=== PATIENT | male | born 1965 | race Hispanic/Latino ===

== ENCOUNTER 2017-10-27 07:05 | Inpatient (IN) | payer SELFPAY ==
[2017-10-27 07:22] LABS: #Basophils 0.1 thou/uL (0.0-0.2); #Eosinphils 0.1 thou/uL (0.0-0.7); #Lymphocytes 3.2 thou/uL (1.20-3.40); #Monocytes 0.7 thou/uL (0.11-0.59); #Neutrophils 5.9 thou/uL (1.40-6.50); %Basophils 0.6 % (0.0-1.0); %Eosinophils 1.5 % (0.0-10.0); %Lymphocytes 31.8 % (21.0-51.0); %Monocytes 6.8 % (0.0-10.0); %Neutrophils 59.3 % (42.0-75.0); Hemoglobin 16.2 g/dL (14.0-18.0); Mean Corpuscular HGB CONC 33.8 g/dL (32.0-36.0); Mean Corpuscular Hemoglobin 32.4 pg (27.0-31.0); Mean Corpuscular Volume 95.9 fL (78.0-98.0); Mean Platelet Volume 7.9 fL (7.4-10.4); Platelet Count 253 thou/uL (130-400); RBC Distribution Width 12.3 % (11.5-14.5); Red Blood Cell (RBC) Count 4.99 mill/uL (4.70-6.10); White Blood Cell (WBC) Count 9.9 thou/uL (4.8-10.8)
[2017-10-27 07:32] LABS: PTT 27.4 SEC (22.9-36.1); Prothrombin Time 12.7 SEC (12.0-14.7)
[2017-10-27 07:45] LABS: ALT (SGPT) 56 U/L (8-55); AST (SGOT) 29 U/L (5-34); Acetaminophen Less than 6.0 mcg/mL (10.0-30.0); Albumin 4.4 g/dL (3.5-5.0); Alcohol Less than 10 mg/dL (Less than 10); Alkaline Phosphatase 126 U/L (40-150); Anion Gap 16 mmol/L (10-20); BUN (Urea Nitrogen) 18 mg/dL (8.4-25.7); Bilirubin, Total 0.4 mg/dL (0.2-1.2); Calc. Creatinine Clearance 0 mL/min (70-130); Calcium 9.3 mg/dL (7.8-10.44); Carbon Dioxide 19 mmol/L (22-29); Chloride 106 mmol/L (98-107); Estimated GFR-MDRD 83; Globulin 3.6 g/dL (2.4-3.5); Glucose 200 mg/dL (70-105); Potassium 4.2 mmol/L (3.5-5.1); Salicylate Less than 8.0 mg/dL (15.0-30.0); Sodium 137 mmol/L (136-145)
[2017-10-27 07:49] LABS: CKMB 0.9 ng/mL (0-6.6); Troponin I Less than 0.010 ng/mL (< 0.028)
[2017-10-27] MEDS ORDERED: Heparin 10,000 UNITS/1 ML VIAL ONE (08:00)
[2017-10-27] MEDS ORDERED: Fentanyl 100 MCG/2 ML VIAL ONE (08:00)
[2017-10-27] MEDS ORDERED: Midazolam HCl 2 mg/2 ml Vial ONE (08:00)
[2017-10-27] MEDS ORDERED: Lidocaine 1% (PF) 30 ML VIAL ONE (08:00)
[2017-10-27] MEDS ORDERED: Nitroglycerin 100MG/250ML BOT 0 ML ONE (08:02)
--- NOTE | 2017-10-27 08:08 | RAD ---
PORTABLE AP CHEST: Date: 10/27/17 HISTORY: Chest pain, STEMI. COMPARISON: 11/05/14. FINDINGS: Postsurgical changes related to CABG are again noted. Prominence of the upper mediastinum. This is st able when compared to multiple prior studies and shown to be related to a combination of mediastinal fat and vascular structures on CTA of the chest in 2012. The cardiac silhouette is enlarged. There is linear atelectasis versus scarring at the left lung base. There is blunting of the right lateral cos tophrenic angle, which is a stable finding, and was also seen on study of 08/04/14 and may be related to pleural and parenchymal scarring at the right lung base. Lungs are otherwise clear. No other inte rval change. IMPRESSION: 1. Cardiomegaly. 2. Linear scarring left lung base with pleural and parenchymal scarring right lung base. 3. No acute cardiopulmonary process. POS: [facility]
[2017-10-27] MEDS ORDERED: Aggrastat 12.5 MG/250 ML 250 ML ONE (09:19)
[2017-10-27] MEDS ORDERED: hydrALAZINE 20 MG/ML VIAL ONE (09:19)
[2017-10-27] MEDS ORDERED: Acetaminophen/Codeine 30-300mg Tablet PO PRN (09:36)
[2017-10-27] MEDS ORDERED: traMADol HCl 50 MG TAB PO PRN (09:36)
[2017-10-27] MEDS ORDERED: Zolpidem Tartrate 5 MG TAB PO PRN (09:36)
[2017-10-27] MEDS ORDERED: cloNIDine 0.1 MG TAB PO PRN (09:36)
[2017-10-27] MEDS ORDERED: Milk Of Magnesia 30 ML UDCUP PO PRN (09:36)
[2017-10-27] MEDS ORDERED: Mag-Al 1200 mg/1200 mg/30 ML UDCUP PO PRN (09:36)
[2017-10-27] MEDS ORDERED: Nitroglycerin 0.4 MG TAB (25 Tab Bottle) SL PRN (09:36)
[2017-10-27] MEDS ORDERED: Nitroglycerin 50 MG/250 ML BOT 250 ML ONE (09:38)
[2017-10-27] MEDS ORDERED: Nitroglycerin 50 MG/250 ML BOT 250 ML IVPB SCH (09:45)
[2017-10-27] MEDS ORDERED: Aggrastat 12.5 MG/250 ML 250 ML IVPB SCH (09:45)
[2017-10-27] MEDS ORDERED: Sodium Chloride 0.9% 1,000 ML IV SCH (09:45)
[2017-10-27 10:51] LABS: #Eosinphils 0.1 thou/uL (0.0-0.7); #Lymphocytes 2.2 thou/uL (1.20-3.40); #Monocytes 0.5 thou/uL (0.11-0.59); #Neutrophils 7.3 thou/uL (1.40-6.50); %Basophils 0.4 % (0.0-1.0); %Eosinophils 1.3 % (0.0-10.0); %Lymphocytes 21.9 % (21.0-51.0); %Monocytes 5.2 % (0.0-10.0); %Neutrophils 71.2 % (42.0-75.0); Hemoglobin 14.6 g/dL (14.0-18.0); Mean Corpuscular HGB CONC 33.6 g/dL (32.0-36.0); Mean Platelet Volume 8.5 fL (7.4-10.4); Platelet Count 259 thou/uL (130-400); RBC Distribution Width 12.4 % (11.5-14.5); Red Blood Cell (RBC) Count 4.57 mill/uL (4.70-6.10); White Blood Cell (WBC) Count 10.2 thou/uL (4.8-10.8)
--- NOTE | 2017-10-27 11:05 | HP ---
DATE OF SERVICE: 10/27/2017 REASON FOR ADMISSION: Chest pain. PRIMARY MANAGER DAIRY: Reynold Gorman M.D. HISTORY OF PRESENT ILLNESS: Mr. Duarte is a pleasant 51-year-old gentleman who comes to the hospital for evaluation of chest pain. He states he has been having this chest pain for the last 3 months, it comes and goes. He describes it as a heartburn type sensation. He has spoken with his pr imary care about this several times and they just give him antireflux medications with not much impro vement. His pain got much worse overnight, so he called 911 earlier this morning when the pain was n ot going away. He had an EKG on route that was thought to be ST elevations; however, this was not th e case. Either way, he was brought to the catheterization lab for further evaluation as he was havin g ongoing chest pain. In the mobile lab technician, he has a history of CABG, so he was found to have an subtotal left main completely occluded LAD and an occluded RCA. He had a CABG x5. Apparently has a fr ee ASH to the LAD which is patent. There is a vein graft to an OM, and a vein graft to an IR, which is a bifurcating vein graft that has about a 90% obstruction just proximal to the bifurcation, very complex lesion and he has got a patent vein to the right. We decided to try to open up that bifurcat ing lesion. It was extremely difficult to wire, but once the 2 wires were through, we were able to b alloon the balloon in a kissing fashion both areas, getting good angioplasty results and we were unab le to get stents mostly to the vein graft to a large OM which was the largest distribution. The sten t would easily go into the IR, but not into the OM, so we decided to leave this just with balloon ang ioplasty as a high likelihood of closing up the OM bypass if we were to stent across. He is chest pa in free and he felt much better after balloon angioplasty and actually was very symptomatic every sim e we opened up the balloons, he felt the chest pain is that he has been feeling for the last few ivet hs. Currently, pain free. PAST MEDICAL HISTORY: 1. Coronary artery disease as above. 2. Hyperlipidemia. 3. Hypertension. 4. Stroke in the past. 5. Type 2 diabetes. PAST SURGICAL HISTORY: 1. CABG x5 in the 90s, 27 years ago. 2. Arthroscopic knee surgery. 3. Appendectomy. 4. Right ear tube placement, many years ago. ALLERGIES: No known drug allergies. OUTPATIENT MEDICATIONS: Include; 1. Lisinopril. 2. Imdur. 3. Plavix. 4. Carvedilol. 5. Atorvastatin. 6. Aspirin. FAMILY HISTORY: Noncontributory. SOCIAL HISTORY: No tobacco, no drugs. He was a drinker in the past about 2 beers a day. REVIEW OF SYSTEMS: Twelve point review of system was done. It is all negative unless stated in the history of present illness. PHYSICAL EXAMINATION: VITAL SIGNS: Temperature 97.2, pulse 80, blood pressure 180/98, satting 98% on 2 liters nasal cannul a. GENERAL: Awake, alert, oriented x3, in no distress. HEENT: Normocephalic, atraumatic. NECK: Supple. LUNGS: Clear. CARDIOVASCULAR: S1, S2, no S3, S4, no murmurs. ABDOMEN: Soft, positive bowel sounds. EXTREMITIES: No edema. SKIN: Warm and dry. LABORATORY WORK: Reviewed. Normal BUN and creatinine. CBC is unremarkable. Troponin is undetectab le x1. EKG was reviewed, normal sinus rhythm with PVCs, but no ST elevations. ASSESSMENT: 1. Unstable angina. 2. Status post balloon angioplasty to a bifurcating vein graft. 3. Hypertension. 4. Coronary artery disease. 5. History of cerebrovascular accident. 6. Hyperlipidemia. PLAN: 1. We will put him in the unit secondary to complex PCI with Aggrastat to make sure he does not clot off anything. We will show his films to surgery to make sure he may need a bypass if his balloon an gioplasty does not stent. I will give him oral antiplatelets once Surgery has reviewed the films. O therwise, continue Aggrastat prior for the next 12 hours. We will pull the sheath an hour after the Aggrastat has been turned off. 2. We will start on nitro drip to try to control his blood pressure a little bit better. 3. We will resume his home medications. 4. FULL CODE. 5. Disposition: Pending clinical evolution.
[2017-10-27 11:15] LABS: CKMB 5.2 ng/mL (0-6.6)
[2017-10-27 11:20] LABS: Troponin I 0.384 ng/mL (< 0.028)
[2017-10-27] MEDS ORDERED: Metoprolol Tartrate 25 MG TAB PO SCH (11:45)
[2017-10-27] MEDS ORDERED: Lisinopril 2.5 MG TAB PO SCH (11:45)
[2017-10-27 12:16] VITALS: BMI 43.9
[2017-10-27] MEDS ORDERED: Iopamidol 370 76% 50 ML VIAL FS ONE (13:48)
[2017-10-27] MEDS ORDERED: Iopamidol 370 76% 100 ML VIAL ONE (13:48)
[2017-10-27] MEDS ORDERED: Folic Acid 1 MG TAB PO SCH (14:00)
[2017-10-27] MEDS ORDERED: Furosemide 40 MG/4 ML VIAL SLOW IVP SCH (14:00)
--- NOTE | 2017-10-27 14:08 | RAD ---
SINGLE VIEW OF THE CHEST: COMPARISON: 11/05/14. HISTORY: Status post interventional cardiology procedure. FINDINGS: A single view of the chest shows an enlarged cardiomediastinal silhouette. The patient is status pos t sternotomy. There is no evidence of consolidation, mass, or pleural effusion. IMPRESSION: Cardiomegaly without evidence of acute cardiopulmonary disease. POS: [facility]
[2017-10-27] MEDS ORDERED: Clopidogrel Bisulfate 300 MG TAB PO SCH (15:15)
[2017-10-27 15:56] LABS: #Eosinphils 0.1 thou/uL (0.0-0.7); #Lymphocytes 2.1 thou/uL (1.20-3.40); #Monocytes 0.6 thou/uL (0.11-0.59); #Neutrophils 7.5 thou/uL (1.40-6.50); %Basophils 0.4 % (0.0-1.0); %Eosinophils 0.8 % (0.0-10.0); %Lymphocytes 19.9 % (21.0-51.0); %Monocytes 6.2 % (0.0-10.0); %Neutrophils 72.7 % (42.0-75.0); Hemoglobin 15.3 g/dL (14.0-18.0); Mean Corpuscular Hemoglobin 32.5 pg (27.0-31.0); Mean Corpuscular Volume 95.4 fL (78.0-98.0); Mean Platelet Volume 7.9 fL (7.4-10.4); Platelet Count 281 thou/uL (130-400); RBC Distribution Width 12.4 % (11.5-14.5); White Blood Cell (WBC) Count 10.3 thou/uL (4.8-10.8)
[2017-10-27 16:27] LABS: CKMB 8.9 ng/mL (0-6.6); Troponin I 1.572 ng/mL (< 0.028)
[2017-10-27] MEDS: Carvedilol 25 MG TAB PO SCH (17:05)
[2017-10-27] MEDS: BEER 1 CAN PO SCH (17:10)
--- NOTE | 2017-10-27 18:15 | CON ---
DATE OF CONSULTATION: 10/27/2017 SERVICE: Pulmonary Medicine. REASON FOR CONSULTATION: ICU patient. HISTORY OF PRESENT ILLNESS: The patient is a 51-year-old male with past medical history significant for coronary artery disease, 5-vessel coronary artery bypass graft remotely. Either way, he ended up with some chest discomfort that started 2 months ago. Initially, it was episodic. He typically wake him up from sleep at night. He walked around and pace little bit and the pain would go away. That being said, last night he had one of these events and by pacing, it did not improve. As such, he came into the emergency department where he was discovered to have a vascular issue. He went for cardiac catheterization and underwent PCI. His chest pain improved. He has multiple features consistent with horrendous obstructive sleep apnea. This has never been investigated. He also drinks fairly heavily. Up until recently , he was doing over 12-pack on a nightly basis. PAST MEDICAL HISTORY: 1. Coronary artery disease. 2. Dyslipidemia. 3. Hypertension. 4. Type 2 diabetes mellitus. 5. Obstructive sleep apnea, not diagnosed. 6. History of cerebrovascular accident. PAST SURGICAL HISTORY: 1. Coronary bypass graft in . 2. Arthroscopic knee surgery. 3. Appendectomy. 4. Right tympanoplasty. ALLERGIES: No known drug allergies. MEDICATIONS: List of his outpatient medications was reviewed. There were no updates made at this time other than discontinuation of IV fluids and initiation of Lasix and alcohol. FAMILY HISTORY: Noncontributory. SOCIAL HISTORY: Negative for alcohol or tobacco. He drinks a 12-14 beers on a nightly basis. He has no exposure to chemicals, dust asbestos or tuberculosis. REVIEW OF SYSTEMS: General, head, ears, eyes, nose, throat, cardiovascular, respiratory, GI, , musculoskeletal, neurologic and skin is negative except as mentioned in the HPI. PHYSICAL EXAMINATION: VITAL SIGNS: Afebrile, pulse 79, blood pressure 190/94, respirations 16, saturation 99% on 2 liters nasal cannula. GENERAL: The patient is awake, alert, in no apparent distress. LUNGS: Decent air entry. There is no prolonged expiratory phase. Dependent crackles are present. There are no rhonchi or wheezing. HEART: Normal rate, regular. ABDOMEN: Soft, nontender, nondistended. Bowel sounds are positive. MUSCULOSKELETAL: No cyanosis or clubbing. There are 1-2+ pitting in the bilateral lower extremities. NEUROLOGIC: Grossly nonfocal. LABORATORY DATA: WBC 10.2, hemoglobin 14.6, platelets 259,000. INR 1.0. Basic metabolic profile and liver function studies are essentially unremarkable. Troponin has bumped up to 0.384. Alcohol, acetaminophen and salicylate are all unremarkable. IMAGIN. Chest x-ray demonstrates no acute cardiopulmonary abnormality. 2. EKG demonstrates no findings of an ST elevation MD. ASSESSMENT: 1. Non-ST elevation myocardial infarction. 2. Coronary artery disease, severe, status post ballooning. 3. Obstructive sleep apnea, likely horrendous. 4. Alcohol abuse. DISCUSSION AND PLAN: I am going to give the patient 2 beers 3 times daily to prevent withdrawal. We can taper this away as time goes on. I counseled him about discontinuing these things in the outpatient setting. We will provide him with a dose of Lasix today and tomorrow morning. IV fluids will be interrupted. The alcohol symptomatology evaluation levels will be followed. In the outpatient setting, he is in desperate need of a polysomnogram as this is likely the source of his angina. 70 minutes have been devoted to this patient in various activities. I personally reviewed all imaging studies and laboratory data noted within this document. For fifty percent of this time, I was interacting with the patient at the bedside or coordinating care with the care team. For the remainder of the time I was immediately available to the patient in the hospital unit. FAIZA
[2017-10-27] MEDS: Metoprolol Tartrate 25 MG TAB PO SCH (21:01)
[2017-10-27] MEDS: cloNIDine 0.2 MG TAB PO SCH (21:02)
[2017-10-27] MEDS: Atorvastatin Calcium 40 MG TAB PO SCH (21:03)
[2017-10-27 21:50] LABS: #Eosinphils 0.1 thou/uL (0.0-0.7); #Lymphocytes 1.8 thou/uL (1.20-3.40); #Monocytes 0.5 thou/uL (0.11-0.59); #Neutrophils 7.6 thou/uL (1.40-6.50); %Basophils 0.4 % (0.0-1.0); %Eosinophils 1.4 % (0.0-10.0); %Lymphocytes 17.5 % (21.0-51.0); %Monocytes 4.9 % (0.0-10.0); %Neutrophils 75.8 % (42.0-75.0); Mean Corpuscular HGB CONC 34.5 g/dL (32.0-36.0); Mean Corpuscular Hemoglobin 32.9 pg (27.0-31.0); Mean Corpuscular Volume 95.5 fL (78.0-98.0); Mean Platelet Volume 7.9 fL (7.4-10.4); Platelet Count 254 thou/uL (130-400); RBC Distribution Width 12.2 % (11.5-14.5); Red Blood Cell (RBC) Count 4.26 mill/uL (4.70-6.10)
[2017-10-28 03:57] LABS: Hemoglobin A1c 6.5 % (4.0-6.0)
[2017-10-28 04:06] LABS: #Basophils 0.1 thou/uL (0.0-0.2); #Eosinphils 0.3 thou/uL (0.0-0.7); #Lymphocytes 2.7 thou/uL (1.20-3.40); #Monocytes 0.7 thou/uL (0.11-0.59); %Basophils 0.7 % (0.0-1.0); %Eosinophils 2.7 % (0.0-10.0); %Lymphocytes 25.1 % (21.0-51.0); %Monocytes 6.2 % (0.0-10.0); %Neutrophils 65.3 % (42.0-75.0); Hemoglobin 14.3 g/dL (14.0-18.0); Mean Corpuscular HGB CONC 35.3 g/dL (32.0-36.0); Mean Corpuscular Volume 96.3 fL (78.0-98.0); Mean Platelet Volume 8.3 fL (7.4-10.4); Platelet Count 231 thou/uL (130-400); RBC Distribution Width 12.4 % (11.5-14.5); Red Blood Cell (RBC) Count 4.21 mill/uL (4.70-6.10); White Blood Cell (WBC) Count 10.7 thou/uL (4.8-10.8)
[2017-10-28 04:23] LABS: ALT (SGPT) 47 U/L (8-55); AST (SGOT) 32 U/L (5-34); Albumin 3.9 g/dL (3.5-5.0); Alkaline Phosphatase 78 U/L (40-150); Anion Gap 14 mmol/L (10-20); BUN (Urea Nitrogen) 17 mg/dL (8.4-25.7); Bilirubin, Total 0.8 mg/dL (0.2-1.2); Calc. Creatinine Clearance 181 mL/min (70-130); Calcium 8.6 mg/dL (7.8-10.44); Carbon Dioxide 25 mmol/L (22-29); Chloride 103 mmol/L (98-107); Cholesterol 222 mg/dl (< 200 Desired); Estimated GFR-MDRD Greater than 90; Globulin 2.8 g/dL (2.4-3.5); Glucose 135 mg/dL (70-105); HDL Cholesterol 37 mg/dL (>60 Neg Risk); LDL Cholesterol, Calculated 133 mg/dL; Potassium 3.7 mmol/L (3.5-5.1); Protein, Total 6.7 g/dL (6.0-8.3); Sodium 138 mmol/L (136-145); Triglycerides 258 mg/dL (Less than 150)
[2017-10-28] MEDS ORDERED: Furosemide 40 MG/4 ML VIAL SLOW IVP SCH (09:00)
[2017-10-28] MEDS ORDERED: Lisinopril 2.5 MG TAB PO SCH (09:00)
[2017-10-28] MEDS ORDERED: Lisinopril 5 MG TAB PO SCH (09:00)
[2017-10-28] MEDS: Furosemide 40 MG TAB PO SCH (09:10)
[2017-10-28] MEDS: cloNIDine 0.2 MG TAB PO SCH ×2 (09:11→20:44)
[2017-10-28] MEDS: Carvedilol 25 MG TAB PO SCH ×2 (09:11→16:29)
[2017-10-28] MEDS: Clopidogrel Bisulfate 75 MG TAB PO SCH (09:13)
[2017-10-28] MEDS: Folic Acid 1 MG TAB PO SCH (09:14)
[2017-10-28] MEDS: Metoprolol Tartrate 25 MG TAB PO SCH (09:15)
[2017-10-28] MEDS: BEER 1 CAN PO SCH ×3 (09:20→16:30)
[2017-10-28] MEDS ORDERED: Diazepam 5 MG TAB PO PRN (11:22)
--- NOTE | 2017-10-28 11:44 | PRG ---
DATE OF SERVICE: 10/28/2017 SERVICE: Pulmonary Medicine. INTERVAL HISTORY: The patient is doing great from a respiratory standpoint. He denies any chest fiordaliza n. He has been weaned off the nitro drip. Otherwise, there has been no interval change to his condi tion. He is chest pain free and has no complaints of shortness of breath. PHYSICAL EXAMINATION: VITAL SIGNS: Afebrile, pulse 64, blood pressure 150/70, respirations 26, saturation 100% on room air . GENERAL: The patient is awake, alert, no apparent distress. LUNGS: Minimal dependent crackles are present. Otherwise, there is no prolonged expiratory phase or wheezing. HEART: Normal rate, regular. ABDOMEN: Soft, nontender, nondistended. Bowel sounds are positive. MUSCULOSKELETAL: No cyanosis or clubbing. There is no pitting in the bilateral lower extremities. NEUROLOGIC: Grossly nonfocal. LABORATORY DATA: WBC 10.7, hemoglobin 14.7, platelets 231,000, INR 1.1. Basic metabolic profile and liver function studies are essentially unremarkable. Triglycerides are 258. Troponin has up trende d to 1.57. Hemoglobin A1c 6.5. ASSESSMENT: 1. Non-ST elevation myocardial infarction. 2. Coronary artery disease, severe, status post ballooning. 3. Obstructive sleep apnea, likely horrendous. 4. Alcohol abuse. DISCUSSION AND PLAN: The patient will be transferred to the telemetry unit. Will continue to watch for signs of withdrawal from alcohol. When he arrives on the floor, he will have no further requirem ents for inpatient Pulmonary or Critical Care opinion, and I will sign off. He will certainly need t o follow up with me in the outpatient setting, so we can arrange for him to have a polysomnogram.
[2017-10-28] MEDS ORDERED: Lisinopril 10 MG TAB PO SCH (13:00)
[2017-10-28] MEDS: Lisinopril 10 MG TAB PO SCH (20:43)
[2017-10-28] MEDS: Atorvastatin Calcium 40 MG TAB PO SCH (20:44)
[2017-10-29] MEDS ORDERED: Diazepam 5 MG TAB PO PRN (04:00)
[2017-10-29] MEDS: Clopidogrel Bisulfate 75 MG TAB PO SCH (08:38)
[2017-10-29] MEDS: Furosemide 40 MG TAB PO SCH (08:38)
[2017-10-29] MEDS: Folic Acid 1 MG TAB PO SCH (08:39)
[2017-10-29] MEDS: cloNIDine 0.2 MG TAB PO SCH ×2 (08:39→20:48)
[2017-10-29] MEDS: BEER 1 CAN PO SCH ×3 (08:39→17:29)
[2017-10-29] MEDS: Carvedilol 25 MG TAB PO SCH ×2 (08:39→17:29)
[2017-10-29] MEDS: Lisinopril 10 MG TAB PO SCH ×2 (08:43→20:47)
[2017-10-29] MEDS: Atorvastatin Calcium 40 MG TAB PO SCH (20:47)
[2017-10-30] MEDS: Clopidogrel Bisulfate 75 MG TAB PO SCH (08:00)
[2017-10-30] MEDS: Lisinopril 10 MG TAB PO SCH (08:00)
[2017-10-30] MEDS: Folic Acid 1 MG TAB PO SCH (08:01)
[2017-10-30] MEDS: cloNIDine 0.2 MG TAB PO SCH ×2 (08:01→20:44)
[2017-10-30] MEDS: Carvedilol 25 MG TAB PO SCH ×2 (08:01→17:10)
[2017-10-30] MEDS: Furosemide 40 MG TAB PO SCH (08:01)
[2017-10-30] MEDS: BEER 1 CAN PO SCH ×3 (08:40→17:10)
--- NOTE | 2017-10-30 10:10 | EKG ---
Test Reason : POST BALLOON Blood Pressure : / mmHG Vent. Rate : 087 BPM Atrial Rate : 087 BPM P-R Int : 142 ms QRS Dur : 114 ms QT Int : 404 ms P-R-T Axes : 047 051 025 degrees QTc Int : 486 ms Sinus rhythm with frequent Premature ventricular complexes Incomplete right bundle branch block Prolonged QT Abnormal ECG Confirmed by DR. Mychal GUILLAUME ([id number]) on 10/30/2017 10:10:10 AM Referred By: CORA Confirmed By:DR. Mychal GUILLAUME
[2017-10-30] MEDS ORDERED: Lisinopril 10 MG TAB PO SCH (11:30)
[2017-10-30] MEDS ORDERED: HYDROcodone/Acetaminophen 5/325 mg Tablet PO PRN (14:20)
[2017-10-30] MEDS ORDERED: Artificial Tear Sol 15 ML BOT EA EYE PRN (14:20)
[2017-10-30] MEDS ORDERED: Eucerin (Mineral Oil/Petrolatum,White) 30 gm Jar TOP PRN (14:20)
[2017-10-30] MEDS ORDERED: Chloraseptic Spray 180 ml Bottle PO PRN (14:20)
[2017-10-30] MEDS ORDERED: Famotidine 20 MG TAB PO PRN (14:20)
[2017-10-30] MEDS ORDERED: Dextrose 50% Abboject 50 ML SYRINGE SLOW IVP PRN (14:20)
[2017-10-30] MEDS ORDERED: Loperamide HCl 2 MG CAP PO PRN (14:20)
[2017-10-30] MEDS ORDERED: Sodium Chloride 0.65% Nasal 44 ML BOT EA NARE PRN (14:20)
[2017-10-30] MEDS ORDERED: Acetaminophen 325 MG TAB PO PRN (14:20)
[2017-10-30] MEDS ORDERED: Ondansetron HCl/PF 4 MG/2 ML Vial IVP PRN (14:20)
[2017-10-30] MEDS ORDERED: Senokot 8.6 MG TAB PO PRN (14:20)
[2017-10-30] MEDS ORDERED: Diabetic Tussin 200 MG/10 ML UDCUP PO PRN (14:20)
[2017-10-30] MEDS ORDERED: Ondansetron ODT 4 MG TAB PO PRN (14:20)
[2017-10-30] MEDS ORDERED: Dextrose 5% in Water 1,000 ML IV PRN (14:20)
[2017-10-30] MEDS ORDERED: Loratadine 10 MG TAB PO PRN (14:20)
[2017-10-30] MEDS ORDERED: HumaLOG 300 UNITS/3 ML VIAL SC PRN ×2 (14:20)
[2017-10-30] MEDS ORDERED: hydrALAZINE 20 MG/ML VIAL SLOW IVP PRN (14:20)
[2017-10-30] MEDS ORDERED: Calcium Carbonate 500 MG ChewTAB PO PRN (14:20)
--- NOTE | 2017-10-30 14:29 | PDOC.PN ---
- Subjective Encounter Start Date: 10/30/17 Encounter Start Time: 14:27 -: old records requested/rev Patient seen and examined. No new complaints. No overnight events - Objective Resuscitation Status: Resuscitation Status FULL:Full Resuscitation MAR Reviewed: Yes Vital Signs & Weight: Vital Signs (12 hours) Temp Pulse Resp BP BP BP Pulse Ox 10/30/17 11:35 97.9 F 57 L 18 122/59 L 96 10/30/17 11:34 122/59 L 10/30/17 08:01 151/75 H 10/30/17 08:00 151/75 H 96 10/30/17 07:55 97.9 F 62 16 151/75 H 96 10/30/17 07:20 97 10/30/17 03:55 97.8 F 57 L 16 116/59 L 97 Weight Admit Weight 280 lb 6.848 oz Weight 269 lb 8 oz Most Recent Monitor Data Heart Rate from ECG 58 NIBP 167/69 NIBP BP-Mean 106 Respiration from ECG 15 SpO2 98 I&O: 10/29/17 10/30/17 10/31/17 06:59 06:59 06:59 Intake Total 640 940 420 Output Total 900 1075 Balance -260 -135 420 Result Diagrams: 10/28/17 03:34 10/28/17 03:34 Additional Labs: Accuchecks 10/30/17 12:02 POC Glucose 133 H Radiology Reviewed by me: Yes (echo reviewed) EKG Reviewed by me: Yes (nsr) Phys Exam - Physical Examination Constitutional: NAD HEENT: PERRLA, moist MMs, sclera anicteric Neck: no JVD, supple Respiratory: no wheezing, no rales, no rhonchi Cardiovascular: RRR, no significant murmur, no rub Gastrointestinal: soft, non-tender, no distention, positive bowel sounds obesity+ Musculoskeletal: no edema, pulses present Neurological: non-focal, normal sensation, moves all 4 limbs Lymphatic: no nodes Psychiatric: normal affect, A&O x 3 Skin: no rash, normal turgor Dx/Plan (1) NSTEMI (non-ST elevated myocardial infarction) Code(s): I21.4 - NON-ST ELEVATION (NSTEMI) MYOCARDIAL INFARCTION Status: Acute (2) Alcohol abuse Code(s): F10.10 - ALCOHOL ABUSE, UNCOMPLICATED Status: Chronic (3) Coronary artery disease Code(s): I25.10 - ATHSCL HEART DISEASE OF [place] CORONARY ARTERY W/O ANG PCTRS Status: Chronic (4) Diabetes type 2, controlled Code(s): E11.9 - TYPE 2 DIABETES MELLITUS WITHOUT COMPLICATIONS Status: Chronic (5) Hyperlipidemia Code(s): E78.5 - HYPERLIPIDEMIA, UNSPECIFIED Status: Chronic (6) Hypertension Code(s): I10 - ESSENTIAL (PRIMARY) HYPERTENSION Status: Chronic (7) Morbid obesity with BMI of 40.0-44.9, adult Code(s): E66.01 - MORBID (SEVERE) OBESITY DUE TO EXCESS CALORIES; Z68.41 - BODY MASS INDEX (BMI) 40.0-44.9, ADULT Status: Chronic (8) LUIS M (obstructive sleep apnea) Code(s): G47.33 - OBSTRUCTIVE SLEEP APNEA (ADULT) (PEDIATRIC) Status: Chronic - Plan cont current plan of care * Start selected home medication for diabetes * hyperglycemia protocol treatment * medication reviewed as below * symptomatic treatment * code status-full code. Review of Systems - Review of Systems Eyes: negative: Pain, Vision Change, Conjunctivae Inflammation, Eyelid Inflammation, Redness, Other ENT: negative: Ear Pain, Ear Discharge, Nose Pain, Nose Discharge, Nose Congestion, Mouth Pain, Mouth Swelling, Throat Pain, Throat Swelling, Other Respiratory: negative: Cough, Dry, Shortness of Breath, Hemoptysis, SOB with Excertion, Pleuritic Pain, Sputum, Wheezing Cardiovascular: negative: chest pain, palpitations, orthopnea, paroxysmal nocturnal dyspnea, edema, light headedness, other Gastrointestinal: negative: Nausea, Vomiting, Abdominal Pain, Diarrhea, Constipation, Melena, Hematochezia, Other Genitourinary: negative: Dysuria, Frequency, Incontinence, Hematuria, Retention , Other Musculoskeletal: negative: Neck Pain, Shoulder Pain, Arm Pain, Back Pain, Hand Pain, Leg Pain, Foot Pain, Other Skin: negative: Rash, Lesions, [place], Bruising, Other - Medications/Allergies Allergies/Adverse Reactions: Allergies Allergy/AdvReac Type Severity Reaction Status Date / Time No Known Drug Allergies Allergy Verified 11/05/14 06:21 Medications: Current Medications Acetaminophen (Tylenol) 650 mg PO Q4H PRN PRN Reason: Headache/Fever or Mild Pain Acetaminophen/Codeine Phosphate (Tylenol #3) 1 tab PO Q4H PRN PRN Reason: Mild Pain (1-3) Hydrocodone Bitart/Acetaminophen ([place] 5/325) 1 tab PO Q4H PRN PRN Reason: Moderate Pain (4-6) Al Hydroxide/Mg Hydroxide (Maalox) 30 ml PO Q3H PRN PRN Reason: Indigestion Artificial Tears (Tears Naturale) 0 drop EA EYE PRN PRN PRN Reason: Dry Eyes Aspirin (Aspirin Chewable) 81 mg PO DAILY [facility] Last Admin: 10/30/17 08:01 Dose: 81 mg Atorvastatin Calcium (Lipitor) 80 mg PO [facility] Beer (Beer) 1 each PO TID-[facility] Last Admin: 10/30/17 12:21 Dose: 1 each Calcium Carbonate (Tums) 1,000 mg PO Q4H PRN PRN Reason: Heartburn or Indigestion Carvedilol (Coreg) 25 mg PO BID-[facility] Last Admin: 10/30/17 08:01 Dose: 25 mg Clonidine (Catapres) 0.1 mg PO Q2H PRN PRN Reason: SBP GREATER THAN 160 Last Admin: 10/27/17 12:29 Dose: 0.1 mg Clonidine (Catapres) 0.2 mg PO BID [facility] Last Admin: 10/30/17 08:01 Dose: 0.2 mg Clopidogrel Bisulfate (Plavix) 75 mg PO DAILY [facility] Last Admin: 10/30/17 08:00 Dose: 75 mg Dextrose/Water (Dextrose 50%) 25 gm SLOW IVP PRN PRN PRN Reason: Hypoglycemia Diazepam (Valium) 5 mg PO Q4H PRN PRN Reason: FOR ASE 10 OR GREATER Famotidine (Pepcid) 20 mg PO BIDPRN PRN PRN Reason: Heartburn or Indigestion Folic Acid (Folvite) 1 mg PO DAILY [facility] Last Admin: 10/30/17 08:01 Dose: 1 mg Furosemide (Lasix) 40 mg PO DAILY-[facility] Last Admin: 10/30/17 08:01 Dose: 40 mg Glipizide (Glucotrol) 5 mg PO BID-[facility] Glucagon (Glucagon) 1 mg IM PRN PRN PRN Reason: Hypoglycemia Guaifenesin (Robitussin Sf) 200 mg PO Q4H PRN PRN Reason: Cough Hydralazine HCl (Apresoline) 10 mg SLOW IVP Q4H PRN PRN Reason: Systolic BP > 180 Dextrose/Water (D5w) 1,000 mls @ 0 mls/hr IV .Q0M PRN PRN Reason: Hypoglycemia Insulin Human Lispro (Humalog) 0 units SC .MODERATE SLIDING SC PRN PRN Reason: Moderate [place] Scale Insulin Human Lispro (Humalog) 0 units SC .BEDTIME SLIDING SC PRN PRN Reason: Bedtime [place]al Scale Lisinopril (Zestril) 20 mg PO BID [facility] Loperamide HCl (Imodium) 2 mg PO PRN PRN PRN Reason: Diarrhea/Loose Stools Loratadine (Claritin) 10 mg PO DAILYPRN PRN PRN Reason: Sinus Symptoms Magnesium Hydroxide (Milk Of Magnesium) 30 ml PO Q12H PRN PRN Reason: Constipation Mineral Oil/White Petrolatum (Eucerin Cream) 0 gm TOP BIDPRN PRN PRN Reason: Dry Skin Nitroglycerin (Nitrostat) 0.4 mg SL Q5MIN PRN PRN Reason: Chest Pain Non-Formulary Medication (Pregabalin [Lyrica]) 100 mg PO BID [facility] Ondansetron HCl (Zofran Odt) 4 mg PO Q6H PRN PRN Reason: Nausea/Vomiting Ondansetron HCl (Zofran) 4 mg IVP Q6H PRN PRN Reason: Nausea/Vomiting Phenol (Chloraseptic [place] 180 Ml Bot) 0 ml PO PRN PRN PRN Reason: Sore Throat Senna (Senokot) 2 tab PO HSPRN PRN PRN Reason: Constipation Sitagliptin Phosphate (Januvia) 100 mg PO DAILY [facility] Sodium Chloride ([place] Nasal [place] 0.65%) 0 ml EA NARE QIDPRN PRN PRN Reason: Nasal Congestion Thiamine HCl (Thiamine) 100 mg PO DAILY [facility] Last Admin: 10/30/17 08:00 Dose: 100 mg Tramadol HCl (Ultram) 50 mg PO Q6H PRN PRN Reason: Mild Pain (1-3) Zolpidem Tartrate (Ambien) 5 mg PO HSPRN PRN PRN Reason: Insomnia
[2017-10-30] MEDS: glipiZIDE 5 MG TAB PO SCH (17:10)
[2017-10-30] MEDS: Pregabalin 50 MG CAP PO SCH (20:43)
[2017-10-30] MEDS: Lisinopril 20 MG TAB PO SCH (20:44)
[2017-10-30] MEDS ORDERED: Atorvastatin Calcium 40 MG TAB PO SCH (21:00)
[2017-10-31 07:27] VITALS: TEMP 97.6
[2017-10-31] MEDS: Furosemide 40 MG TAB PO SCH (08:43)
[2017-10-31] MEDS: Folic Acid 1 MG TAB PO SCH (08:44)
[2017-10-31] MEDS: Pregabalin 50 MG CAP PO SCH (08:44)
[2017-10-31] MEDS: Carvedilol 25 MG TAB PO SCH (08:47)
[2017-10-31] MEDS: glipiZIDE 5 MG TAB PO SCH (08:47)
[2017-10-31] MEDS: Lisinopril 20 MG TAB PO SCH (08:47)
[2017-10-31] MEDS: cloNIDine 0.2 MG TAB PO SCH (08:48)
[2017-10-31] MEDS: Clopidogrel Bisulfate 75 MG TAB PO SCH (08:48)
[2017-10-31] MEDS: BEER 1 CAN PO SCH ×2 (08:53→11:00)
[2017-10-31] MEDS ORDERED: Alogliptin 25 MG TAB PO SCH (09:00)
--- NOTE | 2017-10-31 10:36 | DIS ---
DATE OF ADMISSION: 10/27/2017 DATE OF DISCHARGE: 10/31/2017 PRIMARY CARE PHYSICIAN: [facility]. DISCHARGE DISPOSITION: Home. PRIMARY DISCHARGE DIAGNOSIS: Non-ST elevation myocardial infarction. SECONDARY DISCHARGE DIAGNOSES: Morbid obesity with body mass index 42, obstructive sleep apnea, hype rtension, dyslipidemia, diabetes type 2, coronary artery disease, alcohol abuse. PRIMARY PROCEDURE/OPERATION: Cardiac catheterization was performed by Dr. Adam and found with juarez ve severe coronary artery disease, graft wear pattern. Balloon angioplasty was performed, 2 SVG. RADIOLOGICAL INVESTIGATION: Chest x-ray was normal. Echocardiography showed normal EF. SIGNIFICANT LABORATORY DATA: WBC 10.7, hemoglobin 14.3, platelet 231. INR 1.0. Sodium 138, creatin ine 0.85. Electrolytes normal. LFT normal, LDL 133, triglyceride 258. DISCHARGE MEDICATIONS: Imdur 60 mg p.o. daily, Lyrica 100 mg p.o. b.i.d., Januvia 100 mg p.o. daily, nitroglycerin 0.4 mg sublingual p.r.n. for chest pain, aspirin 81 mg p.o. daily, Lipitor 80 mg p.o. at bedtime, Coreg 25 mg p.o. b.i.d., clonidine 0.2 mg p.o. b.i.d., Plavix 75 mg p.o. daily, folic aci d 1 mg p.o. daily, Lasix 40 mg p.o. daily, Glucotrol 5 mg p.o. b.i.d., lisinopril 20 mg p.o. b.i.d., Claritin 10 mg p.o. daily p.r.n., Tylenol 650 mg q.4 hourly p.r.n., thiamine 100 mg p.o. daily. CONTRAINDICATIONS: None. CODE STATUS: FULL CODE. INPATIENT DRUM STOCK CLERK: Dr. Adam was primary while in hospital. Dr. Ambriz saw this patient [facility] he was in [facility]. Sound Team was consulted for medical management. TEST RESULTS PENDING ON DISCHARGE: None. ALLERGIES: No known drug allergy. DISCHARGE PLAN: Post hospital, patient will follow up with Dr. Valdes in 2-3 weeks. The patient w ill follow up with primary care physician at [facility] in [place] on 11/01/2017 at 1:00 p.m. The patient will follow up with the cardiac rehabilitation program. HOSPITAL COURSE: A 51-year-old male who has above-mentioned medical problem who was admitte d by Dr. Adam 10/27/2017. Please see his H&P for further detail. The patient was admitted for lakeisha st pain. He had significantly abnormal troponin. He was diagnosed with non-STEMI. The patient was admitted to CCU and because of that, [facility] saw this patient while in hospital. The p atient was taken for cardiac catheterization done which showed patent graft and balloon angioplasty w as performed. Post-procedure, the patient stayed initially in CCU and subsequently he was transferre d to telemetry floor. Sound Team was consulted for medical comanagement. Patient's diabetes was appropriately controlled while in hospital with medication. The patient is seen and examined at bedside today. All review of system reviewed with him and negati ve. PHYSICAL EXAMINATION: VITAL SIGNS: Currently, temperature 97.6, pulse 54, respiratory rate 18, saturation 96% on room air, blood pressure 154/73, weight 269 pounds. GENERAL: The patient is currently alert, awake, no obvious acute distress. HEAD: Normocephalic, atraumatic. LUNGS: Clear to auscultation without any rhonchi or rales. CARDIAC: S1 and S2 regular without any murmur. ABDOMEN: Soft and benign without any tenderness. EXTREMITIES: No edema. NEUROLOGIC: Nonfocal examination. Overall, this patient is medically stable for discharge. Cardiology also cleared him for discharge a nd we will sign off.
[2017-10-31 11:52] VITALS: BP 99/58
--- NOTE | 2017-10-31 14:42 | DIS ---
DATE OF ADMISSION: 10/27/2017 DATE OF DISCHARGE: 10/31/2017 DISCHARGE DIAGNOSES: 1. [id number] elevation myocardial infarction with peak MB 8.9, troponin I 1.572. 2. Percutaneous transluminal coronary angioplasty of vein to ramus, unable to place a stent. 3. History of bare metal stent placement in the distal ramus graft in 08/2011. 4. Status post coronary artery bypass graft x5. 5. Hypertension. 6. Hypercholesterolemia with poor control. 7. Diabetes. 8. Former smoker. 9. ETOH abuse. 10. History of cerebrovascular accident. DISCHARGE MEDICATIONS: Aspirin 81 q.a.m., Plavix 75 mg q.a.m., atorvastatin 80 mg daily, carvedilol 25 mg b.i.d., clonidine 0.2 mg b.i.d., furosemide 40 mg q.a.m., glipizide 5 mg b.i.d., lisinopril 20 mg b.i.d., isosorbide mononitrate 60 q.a.m., loratadine 10 mg p.r.n., Lyrica 100 mg b.i.d., Januvia 100 mg daily. DISCHARGE DISPOSITION: The patient will be seen in 3 months, although it is doubtful that he will come for followup. Fasting lipid profile and complete metabolic profile as well as EKG will be obtained. HOSPITAL COURSE: Mr. Gerald Dougherty presented on 10/27/2017 with chest discomfort. He has been having several episodes of pain. The pain did not go away and he called 911. He continued to have chest pain and was brought to the emergency room and then taken to the [facility] by Dr. Adam in my absence. He was found to have subtotal left main, completely occluded LAD, occluded right coronary artery. There was a vein graft to obtuse marginal, which was patent, but did have a 90% lesion proximal to the piggybacked ramus graft. Also, the graft to the LAD proximal and sequentially to the distal LAD was piggybacked onto the obtuse marginal graft, but was proximal to 90% lesion. Two wires were placed into the obtuse marginal graft and both areas were PTCA. The stents were unable to be placed into the obtuse marginal and overall it was felt best to conclude with just PTCA alone. Peak enzymes are as noted above. He is walking the halls without any recurrence of his chest discomfort. Plavix was added to his regimen. Also, his cholesterol was 222, triglycerides 250, HDL 37, LDL 133 and atorvastatin was increased from 40 to 80 mg daily. We talked daily about low cholesterol diet. Follow up will be in 3 months, although in general, he has not kept outpatient appointments. FAIZA
== END 2017-10-31 12:08 | disposition home or self-care (01) | DRG 251 ==
LOC: ERS 07:05 → CCL 07:23 → CCU 09:36 → 2NO 10-28 14:30
PROVIDERS: ADMIT Internal Medicine Cardiovascular Disease; ATTEND Internal Medicine Cardiovascular Disease
PROC: 02713Z6 Dilation of Coronary Artery, Two Arteries, Bifurcation, Percutaneous Approach (ICD-10-PCS; principal; 2017-10-27)
PROC: 4A023N7 Measurement of Cardiac Sampling and Pressure, Left Heart, Percutaneous Approach (ICD-10-PCS; 2017-10-27)
PROC: B2131ZZ Fluoroscopy of Multiple Coronary Artery Bypass Grafts using Low Osmolar Contrast (ICD-10-PCS; 2017-10-27)
PROC: B2111ZZ Fluoroscopy of Multiple Coronary Arteries using Low Osmolar Contrast (ICD-10-PCS; 2017-10-27)
PROC: B2151ZZ Fluoroscopy of Left Heart using Low Osmolar Contrast (ICD-10-PCS; 2017-10-27)
DX: I21.4 Non-ST elevation (NSTEMI) myocardial infarction (principal); Z68.41 Body mass index [BMI] 40.0-44.9, adult; I25.110 Atherosclerotic heart disease of native coronary artery with unstable angina pectoris; E78.5 Hyperlipidemia, unspecified; I10 Essential (primary) hypertension; E11.9 Type 2 diabetes mellitus without complications; F10.10 Alcohol abuse, uncomplicated; E66.01 Morbid (severe) obesity due to excess calories; G47.33 Obstructive sleep apnea (adult) (pediatric); Z79.02 Long term (current) use of antithrombotics/antiplatelets; Z79.82 Long term (current) use of aspirin; Z86.73 Personal history of transient ischemic attack (TIA), and cerebral infarction without residual deficits; Z95.1 Presence of aortocoronary bypass graft
CPT/HCPCS: 36415; 36416; 71045; 80053; 80061; 80307; 82553; 83036; 84484; 85025; 85347; 85610; 85730; 92920; 92921; 93005; 93010; 93306; 93459; 93798; 99152; 99153; C1769; C1874; C1887; J0360; J1644; J1940; J2001; J2250; J3010; J3246

== ENCOUNTER 2018-01-01 07:30 | Inpatient (IN) | payer MEDICAID, SELFPAY ==
[2018-01-01] MEDS ORDERED: Nitroglycerin 2% Ointment 1 INCH/1 GM Packet ONE (07:57)
[2018-01-01] MEDS ORDERED: Nitroglycerin 0.4 MG TAB (25 Tab Bottle) ONE (07:57)
--- NOTE | 2018-01-01 08:10 | RAD ---
CHEST ONE VIEW: HISTORY: Pain. COMPARISON: 10/27/2017 FINDINGS: Sternotomy wires are redemonstrated. There is cardiomegaly. Mild pulmonary vascular prominence. No consolidation or mass. No pleural effusion. No pneumothorax or osseous abnormalities. IMPRESSION: Cardiomegaly with mild pulmonary vascular prominence. POS: [facility]
[2018-01-01 08:23] LABS: #Eosinphils 0.1 thou/uL (0.0-0.7); #Lymphocytes 2.3 thou/uL (1.20-3.40); #Monocytes 0.7 thou/uL (0.11-0.59); #Neutrophils 5.7 thou/uL (1.40-6.50); %Basophils 0.5 % (0.0-1.0); %Eosinophils 1.3 % (0.0-10.0); %Lymphocytes 26.1 % (21.0-51.0); %Monocytes 8.1 % (0.0-10.0); %Neutrophils 64.1 % (42.0-75.0); Hemoglobin 15.5 g/dL (14.0-18.0); Mean Corpuscular HGB CONC 33.4 g/dL (32.0-36.0); Mean Corpuscular Hemoglobin 31.6 pg (27.0-31.0); Mean Corpuscular Volume 94.7 fL (78.0-98.0); Mean Platelet Volume 7.9 fL (7.4-10.4); Platelet Count 268 thou/uL (130-400); RBC Distribution Width 12.2 % (11.5-14.5); Red Blood Cell (RBC) Count 4.91 mill/uL (4.70-6.10); White Blood Cell (WBC) Count 8.9 thou/uL (4.8-10.8)
[2018-01-01 08:47] LABS: ALT (SGPT) 43 U/L (8-55); AST (SGOT) 28 U/L (5-34); Albumin 4.4 g/dL (3.5-5.0); Alkaline Phosphatase 96 U/L (40-150); Anion Gap 15 mmol/L (10-20); BUN (Urea Nitrogen) 24 mg/dL (8.4-25.7); Bilirubin, Total 0.6 mg/dL (0.2-1.2); Calc. Creatinine Clearance 0 mL/min (70-130); Calcium 8.9 mg/dL (7.8-10.44); Carbon Dioxide 22 mmol/L (22-29); Chloride 100 mmol/L (98-107); Estimated GFR-MDRD 67; Glucose 119 mg/dL (70-105); Potassium 3.8 mmol/L (3.5-5.1); Protein, Total 7.4 g/dL (6.0-8.3); Sodium 133 mmol/L (136-145)
[2018-01-01 08:52] LABS: CKMB 1.8 ng/mL (0-6.6)
[2018-01-01 09:00] LABS: Troponin I 0.321 ng/mL (< 0.028)
[2018-01-01] MEDS ORDERED: Enoxaparin Sodium 80 MG/0.8 ML SYRINGE ONE (10:02)
[2018-01-01] MEDS ORDERED: Enoxaparin Sodium 40 MG/0.4 ML SYRINGE ONE (10:08)
[2018-01-01] MEDS ORDERED: Dextrose 50% Abboject 50 ML SYRINGE SLOW IVP PRN (10:59)
[2018-01-01] MEDS ORDERED: Morphine 2 MG/ML SYRINGE SLOW IVP PRN (10:59)
[2018-01-01] MEDS ORDERED: Dextrose 5% in Water 1,000 ML IV PRN (10:59)
[2018-01-01] MEDS ORDERED: HumaLOG 300 UNITS/3 ML VIAL SC PRN (10:59)
[2018-01-01] MEDS ORDERED: Acetaminophen 650 MG Suppository PR PRN (10:59)
[2018-01-01] MEDS ORDERED: Acetaminophen 325 MG TAB PO PRN (10:59)
[2018-01-01] MEDS ORDERED: Senokot S 8.6-50 MG TAB PO PRN (10:59)
[2018-01-01 12:16] LABS: Troponin I 0.405 ng/mL (< 0.028)
--- NOTE | 2018-01-01 12:55 | HP ---
DATE OF ADMISSION: 01/01/2018 PRIMARY CARE PROVIDER: Azalia Sears M.D. CHIEF COMPLAINT: Chest pain. HISTORY OF PRESENT ILLNESS: Mr. Gerald Dougherty is a pleasant 52-year-old gentleman, who was seen at [facility] on 01/01/2018. He was hospitalized at this facility in 10/2017. He had cardiac catheterization at that time, which showed severe pala coronary artery disease, occl uded RCA, occluded LAD, subtotal LM, patent SVG to RCA, patent free ASH to LAD, SVG to IR and OM 90% before bifurcation and 90% on both ostium. He had balloon angioplasty in a kissing balloons fashion with good results. Stent could not be passed into SVG to OM. Dual antiplatelet therapy was recomme nded. Medical therapy was recommended. The patient reports that following the procedure, he continued to have left-sided chest discomfort. He reports that it improved slightly. He went to [place] on 12/03/2017 for 3 weeks. There, he did no t have good transportation and had to walk quite a bit of distance. He found that he was getting steph rt of breath and he was having chest discomfort. After his return to the [facility], he continued to have left-sided chest discomfort. He describes it as sharp, 10/10 at its worst, currently 0 out of 10, radiating to the left shoulder, accompanied by shortness of breath, not accompanied by nausea or vomiting. He reports that it improves when he drinks some water, but it recurs. He denies any cough, fevers or chills. REVIEW OF SYSTEMS: All other systems reviewed and found to be negative. PAST MEDICAL HISTORY: Coronary artery disease, dyslipidemia, hypertension, diabetes mellitus type 2, stroke. PAST SURGICAL HISTORY: Coronary artery bypass graft x5, cardiac catheterization, arthroscopic knee s urgery, appendectomy and right ear tube placement. ALLERGIES: No known drug allergies. CURRENT MEDICATIONS: Aspirin 325 mg daily, Lyrica 100 mg 2 times a day, glipizide 10 mg 2 times a da y, carvedilol 25 mg 2 times a day, Plavix 75 mg daily, simvastatin 20 mg daily, clonidine 0.2 mg 2 ti mes a day and Lasix 40 mg daily. FAMILY HISTORY: The patient denies any family history of premature coronary artery disease. SOCIAL HISTORY: The patient drinks 2-3 beers a day. He denies tobacco use or recreational drug use. PHYSICAL EXAMINATION: GENERAL: Mr. Gerald Dougherty is awake and alert, not in acute distress. VITAL SIGNS: Blood pressure is 128/83, pulse 62, respiratory rate 18 and oxygen saturation 98% on ro om air. He is afebrile. He is obese. EYES: No scleral icterus. No conjunctival pallor. ENT: Moist mucosal membranes. No oropharyngeal erythema or exudates. NECK: Supple, nontender, trachea is midline. RESPIRATORY: Accessory muscles of breathing are not active. Chest wall movements are symmetric bila terally. LUNGS: Clear to auscultation without wheeze, rhonchi or crepitations. CARDIOVASCULAR: S1 and S2 are heard, regular. Peripheral pulses palpable. No carotid bruit, no per icardial rub. ABDOMEN: Soft, distended, nontender. Bowel sounds are heard. NEUROLOGIC: Cranial nerves II-XII intact. Deep tendon reflexes are 2+. MUSCULOSKELETAL: Power is 5/5 in all 4 extremities. SKIN: No rashes or subcutaneous nodules. LYMPHATIC: No cervical lymphadenopathy. PSYCHIATRIC: Normal mood, normal affect, the patient is oriented to person, place and time. LABORATORY DATA: Mr. Gerald Dougherty's labs and investigations were reviewed. I reviewed his electr ocardiogram, which shows normal sinus rhythm, no ST changes to suggest an acute coronary syndrome. I also reviewed his chest x-ray, which does not show any pulmonary infiltrates. He has cardiomegaly. He has an unremarkable CBC, mildly decreased sodium of 133, otherwise unremarkable comprehensive met abolic profile and elevated troponin I of 0.321. ASSESSMENT AND PLAN: Mr. Gerald Dougherty is a pleasant 52-year-old gentleman, who was seen at [facility] on 01/01/2018. His problem list includes: 1. Unstable angina: Mr. Gerald Dougherty is presenting with probable unstable angina, given his card iac history. He has been started on aspirin. We will continue him on aspirin. We will also start h im on therapeutic Lovenox. We will consult Cardiology Service for opinion and help with management. He will be admitted to telemetry floor. 2. Diabetes mellitus type 2: We will start the patient on Accu-Cheks and insulin sliding scale. 3. Hypertension: We will resume the patient's home medications, monitor vital signs and titrate ant ihypertensives as needed. 4. Dyslipidemia: We will continue statin. Many thanks for allowing me to participate in your patient's care. Please feel free to contact me wi th any questions or concerns. LEVEL OF RISK: High. LEVEL OF COMPLEXITY: High.
[2018-01-01 14:21] VITALS: BMI 41.5
[2018-01-01 15:34] LABS: Troponin I 0.457 ng/mL (< 0.028)
[2018-01-01] MEDS: Nitroglycerin 0.4 MG TAB (25 Tab Bottle) SL PRN (17:43)
[2018-01-01] MEDS ORDERED: Nitroglycerin 2% Ointment 1 INCH/1 GM Packet TOP SCH (18:15)
--- NOTE | 2018-01-01 21:30 | CON ---
DATE OF CONSULTATION: 01/01/2018 CARDIOLOGY CONSULTATION REASON FOR ADMISSION: Non-ST elevation myocardial infarction. HISTORY OF PRESENT ILLNESS: Mr. Gerald Pelayo is a very pleasant 52-year-old gentleman with coron sharon artery disease with recurrent chest burning and increased cardiac enzymes. Mr. Gerald Pelayo presented with intractable chest pain. In October, he was taken to [facility] catheterization lab and he was found to have a complicated coronary situation with bypass graft to the marginal branch with stenosis. Dr. Adam tried to balloon and then stented, but the stent would not go with the stent, result was only fair. He continued to have some chest pain following that an d has been treated medically since then. He had improvement in his chest pain for about a month, but the last few weeks he has been having recurrent chest burning and now he is chest burning at rest. MEDICATIONS AT HOME: 1. He was taking Januvia. 2. Lyrica. 3. Carvedilol. 4. Clopidogrel. 5. Lisinopril. 6. Furosemide. 7. In addition to that, he is also receiving aspirin. ALLERGIES: None known. SOCIAL HISTORY: No alcohol or tobacco. REVIEW OF SYSTEMS: CONSTITUTIONAL: No significant weight gain or loss. VISION: No changes. HEARI NG: No changes. PULMONARY: No cough or wheezing. GASTROINTESTINAL: No nausea, vomiting, diarrhea . SKIN: No rashes. NEUROLOGIC: No unilateral weakness or numbness. PSYCHIATRIC: No unusual depr ession or anxiety. HEMATOLOGIC: No unusual bruising. GENITOURINARY: No burning with urination. PHYSICAL EXAMINATION: GENERAL: This is a pleasant 52-year-old man in no distress, but is continued to complain of chest bu rning. VITAL SIGNS: Blood pressure 148/70, pulse 70 regular. EYES: Sclerae nonicteric. MOUTH: Mucous membranes moist. NECK: Supple, no lymphadenopathy. LUNGS: Clear, no wheezing, rales or rhonchi. CARDIAC: Normal S1, normal S2. There is no murmur, rub or gallop. ABDOMEN: Soft, nontender. EXTREMITIES: No clubbing or cyanosis. There is no edema. LABORATORY DATA AND IMAGING DATA: Cardiac enzymes do reveal increase with a troponin peak of 0.457. EKG did not show any acute changes, nonspecific intraventricular conduction delay. ASSESSMENT: 1. Complicated coronary artery disease with previous bypass surgeries as is outlined by Dr. Adam's note. Unfortunately, stent not able to be placed in the graft with a stenosis and the patient still had a residual stenosis at the site of the balloon angioplasty. 2. Recurrent chest pain. 3. Obesity. 4. Diabetes. PLAN: 1. Continue enoxaparin. 2. Aspirin and Plavix. 3. I need to review the catheterization films. There is a stenosis in some of the [place] circulatio n to some of the circumflex distribution that could potentially be stented, but it is unclear if that is the source of his pain. Dr. Valdes to resume care tomorrow.
[2018-01-01] MEDS: Enoxaparin Sodium 120 MG/0.8 ML SYRINGE SC SCH (21:33)
[2018-01-01] MEDS: Nitroglycerin 2% Ointment 1 INCH/1 GM Packet TOP SCH (21:34)
[2018-01-02] MEDS: Nitroglycerin 0.4 MG TAB (25 Tab Bottle) SL PRN (02:40)
[2018-01-02] MEDS ORDERED: hydrALAZINE 20 MG/ML VIAL SLOW IVP PRN (03:18)
[2018-01-02 05:22] LABS: #Eosinphils 0.1 thou/uL (0.0-0.7); #Lymphocytes 2.1 thou/uL (1.20-3.40); #Monocytes 0.5 thou/uL (0.11-0.59); #Neutrophils 4.5 thou/uL (1.40-6.50); %Basophils 0.4 % (0.0-1.0); %Eosinophils 1.5 % (0.0-10.0); %Lymphocytes 28.5 % (21.0-51.0); %Monocytes 7.5 % (0.0-10.0); %Neutrophils 62.2 % (42.0-75.0); Mean Corpuscular HGB CONC 32.9 g/dL (32.0-36.0); Mean Corpuscular Hemoglobin 31.6 pg (27.0-31.0); Mean Corpuscular Volume 95.8 fL (78.0-98.0); Mean Platelet Volume 7.6 fL (7.4-10.4); Platelet Count 251 thou/uL (130-400); RBC Distribution Width 12.2 % (11.5-14.5); Red Blood Cell (RBC) Count 4.75 mill/uL (4.70-6.10); White Blood Cell (WBC) Count 7.3 thou/uL (4.8-10.8)
[2018-01-02 05:37] LABS: Anion Gap 12 mmol/L (10-20); BUN (Urea Nitrogen) 17 mg/dL (8.4-25.7); Calc. Creatinine Clearance 169 mL/min (70-130); Calcium 9.2 mg/dL (7.8-10.44); Carbon Dioxide 26 mmol/L (22-29); Cardiac Risk 6.2 (Less than 4.5); Chloride 103 mmol/L (98-107); Cholesterol 198 mg/dl (< 200 Desired); Estimated GFR-MDRD Greater than 90; Glucose 110 mg/dL (70-105); HDL Cholesterol 32 mg/dL (>60 Neg Risk); LDL Cholesterol, Calculated 90 mg/dL; Potassium 3.9 mmol/L (3.5-5.1); Sodium 137 mmol/L (136-145); Triglycerides 381 mg/dL (Less than 150)
[2018-01-02 05:47] LABS: Troponin I 0.706 ng/mL (< 0.028)
[2018-01-02] MEDS: Nitroglycerin 2% Ointment 1 INCH/1 GM Packet TOP SCH ×3 (07:04→22:02)
[2018-01-02] MEDS: Carvedilol 25 MG TAB PO SCH ×2 (08:17→22:48)
[2018-01-02] MEDS: Enoxaparin Sodium 120 MG/0.8 ML SYRINGE SC SCH ×2 (08:17→22:47)
[2018-01-02] MEDS: Aspirin 325 mg Enteric Coated Tablet PO SCH (08:17)
[2018-01-02] MEDS: Clopidogrel Bisulfate 75 MG TAB PO SCH (08:17)
[2018-01-02] MEDS: Alogliptin 25 MG TAB PO SCH (10:07)
[2018-01-02 10:10] LABS: Critical Call Chem Troponin I RESULT DECREASING; Troponin I 0.504 ng/mL (< 0.028)
[2018-01-02] MEDS: cloNIDine 0.2 MG TAB PO SCH ×2 (10:10→22:47)
[2018-01-02] MEDS: Lisinopril 20 MG TAB PO SCH (10:10)
[2018-01-02] MEDS: Pregabalin 50 MG CAP PO SCH ×2 (10:11→22:50)
[2018-01-02 12:21] LABS: Troponin I 0.577 ng/mL (< 0.028)
--- NOTE | 2018-01-02 15:11 | PDOC.PN ---
- Subjective Encounter Start Date: 01/02/18 Encounter Start Time: 09:40 Pt seen for followup re: NSTEMI. Reports on and off chest pain. No nausea or vomiting. - Objective Vital Signs & Weight: Vital Signs (12 hours) Temp Pulse Pulse Pulse Resp BP BP 01/02/18 12:00 97.6 F 64 20 01/02/18 10:10 165/79 H 01/02/18 09:04 71 72 148/75 H 01/02/18 09:01 71 01/02/18 08:17 64 189/100 H 01/02/18 08:16 01/02/18 07:45 97.7 F 64 20 01/02/18 04:00 98.4 F 67 18 165/79 H BP BP Pulse Ox Pulse Ox Pulse Ox 01/02/18 12:00 98/52 L 97 01/02/18 10:10 01/02/18 09:04 165/79 H 95 98 01/02/18 09:01 127/62 01/02/18 08:17 01/02/18 08:16 97 01/02/18 07:45 171/102 H 97 01/02/18 04:00 165/79 H 98 Weight Weight 265 lb 1 oz I&O: 01/01/18 01/02/18 01/03/18 06:59 06:59 06:59 Intake Total 300 Balance 300 Result Diagrams: 01/02/18 05:14 01/02/18 05:14 Additional Labs: Accuchecks 01/02/18 01/02/18 01/01/18 11:04 06:05 20:16 POC Glucose 172 H 106 110 01/01/18 16:14 POC Glucose 93 Phys Exam - Physical Examination Morbid obesity HEENT: moist MMs, sclera anicteric, oral pharynx no lesions, 2+ tonsils Neck: no nodes, no JVD, supple, full ROM Respiratory: no wheezing, no rales, no rhonchi, clear to auscultation bilateral Cardiovascular: RRR, no rub S1, S2 Gastrointestinal: soft, non-tender, no distention, positive bowel sounds Neurological: moves all 4 limbs Psychiatric: normal affect, A&O x 3 Dx/Plan (1) NSTEMI (non-ST elevated myocardial infarction) Code(s): I21.4 - NON-ST ELEVATION (NSTEMI) MYOCARDIAL INFARCTION Status: Acute Comment: continue aspirin and Lovenox (2) Diabetes type 2, controlled Code(s): E11.9 - TYPE 2 DIABETES MELLITUS WITHOUT COMPLICATIONS Status: Chronic Comment: continyue accuchecks, insulin sliding scale (3) Hyperlipidemia Code(s): E78.5 - HYPERLIPIDEMIA, UNSPECIFIED Status: Chronic Comment: continue statin (4) Hypertension Code(s): I10 - ESSENTIAL (PRIMARY) HYPERTENSION Status: Chronic Comment: controlled (5) Morbid obesity with BMI of 40.0-44.9, adult Code(s): E66.01 - MORBID (SEVERE) OBESITY DUE TO EXCESS CALORIES; Z68.41 - BODY MASS INDEX (BMI) 40.0-44.9, ADULT Status: Chronic - Plan * . Review of Systems - Review of Systems Constitutional: negative: fever, chills, sweats, weakness, malaise Respiratory: SOB with Excertion. negative: Cough, Shortness of Breath, Pleuritic Pain, Wheezing Cardiovascular: chest pain. negative: palpitations, orthopnea, paroxysmal nocturnal dyspnea, edema, light headedness Gastrointestinal: negative: Nausea, Vomiting, Abdominal Pain, Diarrhea, Constipation, Melena, Hematochezia Genitourinary: negative: Dysuria, Frequency, Incontinence, Hematuria, Retention Skin: negative: Rash, Lesions, Agap[place], Bruising - Medications/Allergies Allergies/Adverse Reactions: Allergies Allergy/AdvReac Type Severity Reaction Status Date / Time No Known Drug Allergies Allergy Verified 11/05/14 06:21 Medications: Current Medications Acetaminophen (Tylenol) 650 mg PO Q4H PRN PRN Reason: Headache/Fever/Mild Pain (1-3) Acetaminophen (Tylenol) 650 mg MT Q4H PRN PRN Reason: Headache/Fever/Mild Pain (1-3) Alogliptin Benzoate (Alogliptin) 25 mg PO DAILY [facility] Last Admin: 01/02/18 10:07 Dose: 25 mg Aspirin (Ecotrin) 325 mg PO DAILY [facility] Last Admin: 01/02/18 08:17 Dose: 325 mg Carvedilol (Coreg) 25 mg PO BID [facility] Last Admin: 01/02/18 08:17 Dose: 25 mg Clonidine (Catapres) 0.2 mg PO BID [facility] Last Admin: 01/02/18 10:10 Dose: 0.2 mg Clopidogrel Bisulfate (Plavix) 75 mg PO DAILY [facility] Last Admin: 01/02/18 08:17 Dose: 75 mg Dextrose/Water (Dextrose 50%) 25 gm SLOW IVP PRN PRN PRN Reason: Hypoglycemia Enoxaparin Sodium (Lovenox) 120 mg SC 0900,2100 [facility] Last Admin: 01/02/18 08:17 Dose: 120 mg Furosemide (Lasix) 40 mg PO DAILY[facility] Glipizide (Glucotrol) 10 mg PO BID[facility] Glucagon (Glucagon) 1 mg IM PRN PRN PRN Reason: Hypoglycemia Hydralazine HCl (Apresoline) 10 mg SLOW IVP Q4H PRN PRN Reason: SBP > 180 Last Admin: 01/02/18 08:17 Dose: 10 mg Dextrose/Water (D5w) 1,000 mls @ 0 mls/hr IV .Q0M PRN PRN Reason: Hypoglycemia Insulin Human Lispro (Humalog) 0 units SC .MILD SLIDING SCALE PRN PRN Reason: Mild Correctional Scale Last Admin: 01/02/18 11:10 Dose: 2 unit Lisinopril (Zestril) 20 mg PO DAILY [facility] Last Admin: 01/02/18 10:10 Dose: 20 mg Morphine Sulfate (Morphine) 2 mg SLOW IVP Q5MIN PRN PRN Reason: Chest Pain Nitroglycerin (Nitrostat) 0.4 mg SL Q5MIN PRN PRN Reason: Chest Pain Last Admin: 01/02/18 02:40 Dose: 0.4 mg Nitroglycerin (Nitro-Bid 2% Ointment) 1 inch TOP Q8HR [facility] Last Admin: 01/02/18 07:04 Dose: 1 inch Pregabalin (Lyrica) 100 mg PO BID [facility] Last Admin: 01/02/18 10:11 Dose: 100 mg Senna/Docusate Sodium (Senokot S) 2 tab PO BID PRN PRN Reason: Constipation
[2018-01-02] MEDS: glipiZIDE 5 MG TAB PO SCH (16:54)
[2018-01-02] MEDS ORDERED: Atorvastatin Calcium 40 MG TAB PO SCH (21:00)
[2018-01-03 04:20] LABS: #Basophils 0.1 thou/uL (0.0-0.2); #Eosinphils 0.1 thou/uL (0.0-0.7); #Lymphocytes 2.3 thou/uL (1.20-3.40); #Monocytes 0.7 thou/uL (0.11-0.59); #Neutrophils 4.6 thou/uL (1.40-6.50); %Eosinophils 1.6 % (0.0-10.0); %Lymphocytes 29.8 % (21.0-51.0); %Monocytes 8.5 % (0.0-10.0); %Neutrophils 59.2 % (42.0-75.0); Hemoglobin 14.3 g/dL (14.0-18.0); Mean Corpuscular HGB CONC 32.7 g/dL (32.0-36.0); Mean Corpuscular Hemoglobin 31.8 pg (27.0-31.0); Mean Corpuscular Volume 97.2 fL (78.0-98.0); Mean Platelet Volume 8.1 fL (7.4-10.4); Platelet Count 231 thou/uL (130-400); RBC Distribution Width 12.2 % (11.5-14.5); Red Blood Cell (RBC) Count 4.49 mill/uL (4.70-6.10); White Blood Cell (WBC) Count 7.8 thou/uL (4.8-10.8)
[2018-01-03 04:37] LABS: Anion Gap 12 mmol/L (10-20); BUN (Urea Nitrogen) 19 mg/dL (8.4-25.7); Calc. Creatinine Clearance 151 mL/min (70-130); Carbon Dioxide 24 mmol/L (22-29); Chloride 104 mmol/L (98-107); Estimated GFR-MDRD 83; Glucose 95 mg/dL (70-105); Potassium 3.9 mmol/L (3.5-5.1); Sodium 136 mmol/L (136-145)
[2018-01-03] MEDS ORDERED: Furosemide 40 MG TAB PO SCH (07:30)
[2018-01-03] MEDS: Nitroglycerin 2% Ointment 1 INCH/1 GM Packet TOP SCH ×2 (07:47→15:14)
[2018-01-03] MEDS: Aspirin 325 mg Enteric Coated Tablet PO SCH (09:31)
[2018-01-03] MEDS: Clopidogrel Bisulfate 75 MG TAB PO SCH (09:31)
[2018-01-03] MEDS: Pregabalin 50 MG CAP PO SCH (09:31)
[2018-01-03] MEDS: Alogliptin 25 MG TAB PO SCH (09:31)
[2018-01-03] MEDS: glipiZIDE 5 MG TAB PO SCH ×2 (09:33→16:32)
[2018-01-03] MEDS: Carvedilol 25 MG TAB PO SCH (09:33)
[2018-01-03] MEDS: cloNIDine 0.2 MG TAB PO SCH (09:34)
[2018-01-03] MEDS: Lisinopril 20 MG TAB PO SCH (09:34)
[2018-01-03] MEDS: Enoxaparin Sodium 120 MG/0.8 ML SYRINGE SC SCH (09:36)
[2018-01-03 16:32] VITALS: BP 100/56; TEMP 98.3
--- NOTE | 2018-01-03 19:47 | DIS ---
DATE OF ADMISSION: 01/01/2018 DATE OF DISCHARGE: 01/03/2018 PRIMARY CARE PROVIDER: Azalia Sears M.D. DISCHARGE DIAGNOSES: 1. Non-ST elevation myocardial infarction. 2. Dyslipidemia. 3. Medication noncompliance. CONDITION OF PATIENT ON THE DAY OF DISCHARGE: Stable. I assessed Mr. Gerald Dougherty on the day of discharge. He denies any chest pain. Vital signs are s table. S1 and S2 are heard, regular. Lungs are clear to auscultation bilaterally. DISCHARGE MEDICATIONS: Glipizide 10 mg 2 times a day, lisinopril 20 mg daily, Lyrica 100 mg 2 times a day, Januvia 100 mg daily, aspirin 325 mg daily, Lipitor 80 mg at bedtime, Coreg 25 mg 2 times a da y, clonidine 0.2 mg 2 times a day, Plavix 75 mg daily, Lasix 40 mg daily, and Ranexa 1000 mg 2 times a day. CONSULTATIONS DURING THIS HOSPITALIZATION: Cardiology, Dr. Prieto. HOSPITAL COURSE: Mr. Gerald Dougherty is a pleasant 52-year-old gentleman, who was admitted to [facility] on 01/01/2018 for chest pain and non-ST elevation myocardial infarction. Please refer to my history and physical note dated 01/01/2018 for further details. He was seen by [facility]. He received Lovenox. He was also reportedly noncompliant with atorvastatin, whic h has been resumed. He had resolution of his symptoms after he was started on Ranexa. He is being discharged home on Ran exa. He is also advised to follow up with his primary care provider for rechecking his LFTs, since h e is on statin. On the day of discharge, Mr. Duarte has a normal Chem-7, white count 7800, hemoglobin 14.3, and plate let count 231,000. Many thanks for allowing me to participate in your patient's care. Please feel free to contact me wi th any questions or concerns. DISCHARGE DESTINATION: Home. TOTAL AMOUNT OF TIME SPENT COORDINATING THIS DISCHARGE: 32 minutes.
== END 2018-01-03 18:02 | disposition home or self-care (01) | DRG 281 ==
LOC: ERS 07:30 → ERHOLD 09:43 → 2SE 13:45
PROVIDERS: ADMIT Internal Medicine; ATTEND Internal Medicine
DX: I21.4 Non-ST elevation (NSTEMI) myocardial infarction (principal); Z68.41 Body mass index [BMI] 40.0-44.9, adult; E66.01 Morbid (severe) obesity due to excess calories; I25.110 Atherosclerotic heart disease of native coronary artery with unstable angina pectoris; Z95.1 Presence of aortocoronary bypass graft; I10 Essential (primary) hypertension; E11.9 Type 2 diabetes mellitus without complications; Z86.73 Personal history of transient ischemic attack (TIA), and cerebral infarction without residual deficits; E78.5 Hyperlipidemia, unspecified; Z79.82 Long term (current) use of aspirin; Z79.899 Other long term (current) drug therapy; Z79.02 Long term (current) use of antithrombotics/antiplatelets; Z79.84 Long term (current) use of oral hypoglycemic drugs
CPT/HCPCS: 36415; 36416; 71045; 80048; 80053; 80061; 82553; 84484; 85025; 93005; 93798; 96372; J0360; J1650; J2270